=== PATIENT | male | born 1990 | race Caucasian/White ===

== ENCOUNTER → 2018-05-22 11:43 | Outpatient (POV) | payer MEDICAID, SELFPAY | PROVIDERS: Family Provider Internal Medicine Adolescent Medicine; PCP Internal Medicine Adolescent Medicine; Visit Provider Specialist | DX: G56.31 Lesion of radial nerve, right upper limb (principal) | CPT/HCPCS: 95886; 95909 ==

== ENCOUNTER → 2018-07-14 12:49 | Outpatient (CLI) | payer MEDICAID, SELFPAY ==
--- NOTE | 2018-07-14 12:51 | MR_ITS ---
MR cervical spine wo con, MR 3-d myelogram/MRCP HISTORY: Neck andRT arm pain . ORDERING PHYSICIAN: Angella Frederick MD PATIENT AGE: 28 years Comparison: CT 03-03-11 TECHNIQUE: Standard multiplanar multiecho sequences are performed without contrast. 3-D MIP and myelographic images are also rendered and reviewed FINDINGS: There is normal alignment. Prominent CSF signal intensity is noted posterior to the cerebellum and may represent either a prominent cisterna magna or arachnoid cyst. Spinal cord has an unremarkable appearance C2-C3, C3-C4, C4-C5, and C5-C6 7 unremarkable appearance. C6-C7: Minimal bulging disc without impingement. C7-T1: Unremarkable. IMPRESSION: 1. Minimal bulging disc at C6-C7 without impingement. 2. Otherwise negative MRI of the cervical spine. No disc herniation or canal stenosis. 3. 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
== END ==
PROVIDERS: Family Provider Internal Medicine Adolescent Medicine; PCP Internal Medicine Adolescent Medicine; Visit Provider Specialist
DX: G56.31 Lesion of radial nerve, right upper limb (principal); M54.2 Cervicalgia
CPT/HCPCS: 72141; 76376

== ENCOUNTER → 2018-08-14 12:26 | Outpatient (POV) | payer MEDICAID, SELFPAY | PROVIDERS: Visit Provider Specialist | DX: G56.31 Lesion of radial nerve, right upper limb (principal); M54.2 Cervicalgia; M21.331 Wrist drop, right wrist | CPT/HCPCS: 95886; 95909 ==

== ENCOUNTER → 2018-12-07 12:41 | Outpatient (CLI) | payer MEDICAID, SELFPAY ==
[2018-12-07 13:17] LABS: Basophils % 0.2 % (0.1-2.0); Eosinophils # 0.1 K/mm3 (0.0-0.4); Eosinophils % 0.5 % (0.1-12.0); Hematocrit 49.4 % (42.0-52.0); Hemoglobin 15.9 g/dL (14.1-18.0); Lymphocytes # 0.7 K/mm3 (0.7-4.5); Lymphocytes % 5.7 % (10-50); Mean Corpuscular HGB Conc 32.1 g/dL (31.8-35.4); Mean Corpuscular Volume 96.6 fl (80-94); Mean Platelet Volume 8.9 fl (7.4-10.4); Monocytes # 0.2 K/mm3 (0.1-1.0); Monocytes % 1.8 % (1.7-9.3); Neutrophils # 11.2 K/mm3 (1.8-7.8); Neutrophils % 91.8 % (37.0-80.0); Platelet Count 309 K/mm3 (142-424); Red Blood Count 5.12 M/mm3 (4.60-6.20); Red Cell Distribution Width 13.7 % (11.5-17.5); White Blood Count 12.2 K/mm3 (4.8-10.8)
[2018-12-07 13:38] LABS: MANUAL DIFFERENTIAL MANUAL DIFFERENTIAL (MANUAL DIFF)
[2018-12-07 14:30] LABS: Alanine Aminotransferase 86 U/L (12-78); Albumin Level 4.2 gm/dL (3.4-5.0); Albumin/Globulin Ratio 1.3 (1.1-1.8); Alkaline Phosphatase 103 U/L (46-116); Anion Gap 15.9 mEq/L (5-15); Aspartate Amino Transferase 25 U/L (15-37); Bilirubin,Total 0.6 mg/dL (0.2-1.0); Blood Urea Nitrogen 18 mg/dL (7-18); Calcium 9.6 mg/dL (8.5-10.1); Carbon Dioxide 26 mmol/L (21.0-32.0); Chloride 104 mmol/L (98-107); Creatinine,Serum 0.84 mg/dL (0.70-1.30); Estimated Glomerular Filt Rate 107 ml/min (>60); GFR (African American) 130 ML/MIN (>60); Globulin 3.3 gm/dl (1.3-3.2); Glucose 118 mg/dL (74-106); Potassium 4.9 mmoL/L (3.5-5.1); Sodium 141 mmol/L (136-145); Total Protein,Serum 7.5 gm/dL (6.4-8.2)
[2018-12-07 15:31] LABS: Lymphocytes % 8 % (10-50); Monocytes % 1 % (2-9); Neutrophils % 90 % (42-76); Total Cells Counted 100
[2018-12-07 15:32] LABS: Platelet Estimate Normal; RBC Morphology Normal
== END ==
PROVIDERS: Visit Provider Nurse Practitioner Family
DX: R10.30 Lower abdominal pain, unspecified (principal)
CPT/HCPCS: 36415; 80053; 85007; 85025

== ENCOUNTER → 2018-12-08 13:03 | Outpatient (CLI) | payer MEDICAID, SELFPAY ==
--- NOTE | 2018-12-08 15:15 | CT_ITS ---
CT abdomen pelvis wo con CLINICAL INDICATION: Lower abdominal pain with elevated white blood cell count ITS.REASON: LOW ABD PAIN ORDERING PHYSICIAN: Berta Rojas PATIENT AGE: 28 years COMPARISON: None TECHNIQUE: Axial images obtained with sagittal and coronal reformats. All CT scans at the facility use one or more dose reduction, viz: automated exposure control, ma/kV adjustment per patient size (including targeted exams where dose is matched to indication, i.e. head), or iterative reconstruction technique. PROCEDURE: Oral Contrast: None IV Contrast: Gastroview. FINDINGS: The lung bases are clear. The liver, gallbladder, spleen, adrenal glands, pancreas, and kidneys have an unremarkable unenhanced CT appearance. There is a tiny umbilical hernia containing fat. There are few scattered small lymph nodes in the mesentery which are nonspecific. No evidence of appendicitis. There is a mild amount of retained colonic feces in the rectosigmoid region. No evidence of diverticulitis. No intestinal obstruction or free air. No abscess or focal inflammatory change apparent. There is mild thickening of the descending colon and proximal sigmoid colon. This could be due to nondistention or mild colitis. No acute bony findings. Hemangioma involves T11 vertebral body. Small bone island is present in the left acetabular roof. IMPRESSION: 1. Thickening of the descending and proximal sigmoid colon which could be due to nondistention or colitis 2. Otherwise negative CT abdomen pelvis without contrast
== END ==
PROVIDERS: PCP Internal Medicine Adolescent Medicine; Visit Provider Nurse Practitioner Family
DX: R10.30 Lower abdominal pain, unspecified (principal)
CPT/HCPCS: 74176

== ENCOUNTER 2018-12-13 11:01 | Outpatient (CLI) | payer MEDICAID, SELFPAY ==
[2018-12-13 11:30] VITALS: BP 101/75; PULSE 55; RESP 18; TEMP 36.7; O2SAT 95
[2018-12-13 11:41] LABS: Basophils # 0.1 K/mm3 (0-0.2); Basophils % 1.3 % (0.1-2.0); Eosinophils # 0.2 K/mm3 (0.0-0.4); Eosinophils % 2.7 % (0.1-12.0); Hematocrit 44.4 % (42.0-52.0); Hemoglobin 15.2 g/dL (14.1-18.0); Lymphocytes # 2.7 K/mm3 (0.7-4.5); Lymphocytes % 41.6 % (10-50); Mean Corpuscular HGB Conc 34.2 g/dL (31.8-35.4); Mean Corpuscular Hemoglobin 31.2 pg (27.0-31.2); Mean Corpuscular Volume 91.4 fl (80-94); Mean Platelet Volume 8.6 fl (7.4-10.4); Monocytes # 0.6 K/mm3 (0.1-1.0); Monocytes % 8.8 % (1.7-9.3); Neutrophils % 45.6 % (37.0-80.0); Platelet Count 286 K/mm3 (142-424); Red Blood Count 4.85 M/mm3 (4.60-6.20); Red Cell Distribution Width 13.4 % (11.5-17.5); White Blood Count 6.5 K/mm3 (4.8-10.8)
[2018-12-13 11:59] LABS: Alanine Aminotransferase 77 U/L (12-78); Albumin/Globulin Ratio 1.2 (1.1-1.8); Alkaline Phosphatase 95 U/L (46-116); Anion Gap 11.6 mEq/L (5-15); Aspartate Amino Transferase 29 U/L (15-37); Bilirubin,Total 0.5 mg/dL (0.2-1.0); Blood Urea Nitrogen 13 mg/dL (7-18); Calcium 9.4 mg/dL (8.5-10.1); Carbon Dioxide 29 mmol/L (21.0-32.0); Chloride 106 mmol/L (98-107); Creatinine Clearance Estimated 97 mL/min (50-200); Estimated Glomerular Filt Rate 88 ml/min (>60); GFR (African American) 106 ML/MIN (>60); Globulin 3.3 gm/dl (1.3-3.2); Glucose 88 mg/dL (74-106); Potassium 3.6 mmoL/L (3.5-5.1); Sodium 143 mmol/L (136-145); Total Protein,Serum 7.3 gm/dL (6.4-8.2)
[2018-12-13 12:35] VITALS: BP 110/78; PULSE 67; RESP 18
--- NOTE | 2018-12-13 13:52 | PC.NURSE ---
1120: PT does not want zofran iv given.
[2018-12-14 09:21] LABS: Hep A Ab, IgM Negative (Negative); Hepatitis B Core Antibody IgM Negative (Negative); Hepatitis B Surface Antigen Negative (Negative)
[2018-12-16 10:10] LABS: Hepatitis C Antibody >11.0 s/co ratio (0.0-0.9)
== END 2018-12-13 12:35 | disposition home or self-care (01) ==
LOC: INF 11:02
PROVIDERS: PCP Internal Medicine Adolescent Medicine; Visit Provider Nurse Practitioner Family
DX: K52.9 Noninfective gastroenteritis and colitis, unspecified (principal); R74.8 Abnormal levels of other serum enzymes; E86.0 Dehydration
CPT/HCPCS: 80053; 80074; 85025; 96360